=== PATIENT | male | born 1990 | race Caucasian/White ===

== ENCOUNTER 2017-03-11 14:47 | Inpatient (IN) | payer MEDICAID, OTHER ==
[~2017-03-11] VITALS: Ht 175.3 cm; Wt 97.0 kg
[2017-03-11] MEDS ORDERED: SOD CHLORIDE 0.9% 1,000 ML IV STA (15:34)
[2017-03-11] MEDS ORDERED: HYDROmorphONE 1 MG/ML SYG IV STA (15:34)
[2017-03-11] MEDS ORDERED: ONDANSETRON 4 MG INJ IV STA (15:34)
--- NOTE | 2017-03-11 15:57 | RADRPT ---
PROCEDURE: XR Chest. CLINICAL INDICATION: Trauma with pain TECHNIQUE: A single portable view of the chest was obtained. COMPARISON: None FINDINGS: The cardiomediastinal silhouette is within normal limits. The lung volumes are low. The lungs and pl eural spaces are otherwise clear. The soft tissues and osseous structures are unremarkable. IMPRESSION: No acute cardiopulmonary disease. RPTAT: HPNM Physician Michael Date Time Electronically viewed and signed by Mat Melendez Physician on 03/11/2017 15:56 /
[2017-03-11] MEDS ORDERED: DIPHTH/TET/ACEL PERTUSS (ADULT) 0.5 ML VIAL IM* ONE (16:00)
[2017-03-11] MEDS ORDERED: CEFAZOLIN 2 GM/50 ML (PMX) 50 ML IVPB ONE (16:00)
[2017-03-11 16:02] LABS: BASOPHILS % 0.2 % (0.0-2.0); EOSINOPHILS # 0.1 10^3/ul (0.0-0.5); EOSINOPHILS % 0.3 % (0.0-7.0); HEMATOCRIT 43.9 % (42.0-52.0); HEMOGLOBIN 15.1 g/dl (14.0-18.0); LYMPHOCYTES # 1.1 10^3/ul (0.8-2.9); LYMPHOCYTES % 6.5 % (15.0-51.0); MEAN CORPUSCULAR HGB CONC 34.4 g/dl (32.0-37.0); MEAN CORPUSCULAR VOLUME 84.3 fl (82.0-101.0); MEAN PLATELET VOLUME 8.9 fl (7.4-10.4); MONOCYTE # 1.2 10^3/ul (0.3-0.9); MONOCYTES % 6.9 % (0.0-11.0); NEUTROPHIL # 14.5 10^3/ul (1.6-7.5); NEUTROPHILS % 85.4 % (39.0-77.0); PLATELET COUNT 319 10^3/UL (140-415); RED BLOOD COUNT 5.21 10^6/ul (4.70-6.10); RED CELL DISTRIBUTION WIDTH 12.2 % (11.5-14.5)
[2017-03-11 16:18] LABS: PROTIME 13.3 Sec (11.9-14.9)
[2017-03-11 16:20] LABS: ANION GAP 16 (8-16); BLOOD UREA NITROGEN 8 mg/dl (7-20); CALCIUM 9.7 mg/dl (8.4-10.2); CARBON DIOXIDE 26 mmol/L (21-31); CHLORIDE 96 mmol/L (97-110); CREATININE 0.85 mg/dl (0.61-1.24); GLUCOSE 100 mg/dl (70-220); POTASSIUM 3.4 mmol/L (3.5-5.1); SODIUM 135 mmol/L (135-144)
[2017-03-11 16:40] LABS: TROPONIN-I < 0.012 ng/ml (0.00-0.12)
--- NOTE | 2017-03-11 16:41 | RADRPT ---
PROCEDURE: XR Forearm. CLINICAL INDICATION: Fall. TECHNIQUE: Right forearm, AP and lateral views. COMPARISON: None. FINDINGS: The bone mineralization is age appropriate. There is a displaced overriding fracture of the mid right radius. There is soft tissue edema and gas along the right mid forearm. IMPRESSION: Displaced overriding fracture of the mid right radius. RPTAT: AAEE Cezar Gaffney Physician Date Time Electronically viewed and signed by Cezar Gaffney Physician on 03/11/2017 16:40 /
--- NOTE | 2017-03-11 17:04 | RADRPT ---
PROCEDURE: CT cervical spine without contrast CLINICAL INDICATION: Trauma. Neck pain. TECHNIQUE: CT scan of the cervical spine was [facility] No IV contrast was administered. Coronal and sagittal reformatted images were obtained from th e axial source images. Images were reviewed on a high-resolution PACS workstation. One or more the f ollowing does reduction techniques were utilized: Automated exposure control, adjustment of the mA/ or kV according to patient's size, or use of iterative reconstruction technique. Exam CTDI = 22.34 m Gy and the DLP = 620.98 mGy-cm. DICOM images are available. COMPARISON: None available. FINDINGS: There is straightening of the alignment of the cervical spine with loss of the normal cervical lordo sis. Alignment remains intact. No acute fracture or dislocation is seen. The vertebral body heigh ts and disk spaces are preserved. No significant spinal canal or foraminal stenosis is noted. No ma ss, hematoma, or other soft tissue abnormality is seen. IMPRESSION: 1. Straightening of normal cervical lordosis. 2. No acute fracture or traumatic subluxation. RPTAT: UU .Mireya Palomino MD, MD Date Time Electronically viewed and signed by .Mireya Palomino MD, MD on 03/11/2017 17:04 .N/
--- NOTE | 2017-03-11 17:05 | RADRPT ---
PROCEDURE: CT Brain without. CLINICAL INDICATION: Injury, fall, pain. TECHNIQUE: A CT of the brain was performed on multidetector high-resolution CT scanner utilizing a xial sections from the skull base through the vertex without contrast. The scan was reviewed in sof t tissue brain and high frequency resolution bone algorithm windows. Images were reviewed on a high -resolution PACS workstation. One or more the following does reduction techniques were utilized: Aut omated exposure control, adjustment of the mA/ or kV according to patient's size, or use of iterativ e reconstruction technique. The exam CTDI = 39.56 mGy and the DLP = 810.25 mGy-cm. DICOM images are available. COMPARISON: None available. FINDINGS: The ventricles and sulci are age-appropriate. There is no intracranial hemorrhage, mass effect or mi dline shift. No abnormal intra-axial or extra-axial fluid collections are seen. The bowser/white dominick er differentiation is preserved. No acute skull abnormality is noted. The visualized paranasal sinus es demonstrate mild mucus secretion and fluid level in the right maxillary sinus. There is probable mucous retention cyst in the right maxillary sinus. The mastoid air cells are essentially clear. IMPRESSION: 1. No acute intracranial hemorrhage, transcortical infarction or mass effect. RPTAT: HH .Mireya Palomino MD, MD Date Time Electronically viewed and signed by .Mireya Palomino MD, MD on 03/11/2017 17:05 .N/
--- NOTE | 2017-03-11 17:14 | RADRPT ---
PROCEDURE: CT Chest. CLINICAL INDICATION: Trauma with chest pain. TECHNIQUE: CT scan of the chest without contrast was performed on the [facility] volumetric [address] [facility] without contrast. Coronal and sagittal reformatted images were obtained from the axial source images. The CTDI vol is 15.59 mGy and the DLP is 675.94 mGy-cm. One or more of the following dose reduction techniques were used: Automated exposure control. Adjustment of the mA and/or kV according to patient size. Use of iterative reconstruction technique. COMPARISON: None. FINDINGS: The lungs are clear. No focal opacification, effusion, pneumothorax, edema, or nodules are seen. T here is no acute infiltrate.The mediastinum and hilum are unremarkable without evidence for mass or lymphadenopathy. The vascular structures of the mediastinum are unremarkable in course and caliber . The heart size is normal without evidence for pericardial thickening or effusion. The axillary r egions, subpectoral regions, and supraclavicular regions are all unremarkable. Imaging obtained thr ough the upper abdomen reveals no acute abnormality. A minimal compression fracture of the superior endplate of T9 is suggested. No osteolytic or osteoblastic lesion is detected. IMPRESSION: 1. Limited examination secondary to the noncontrast technique in the setting of trauma. 2. Suggestion of a minimal compression fracture of the T9 superior endplate. 3. Otherwise, no other CT evidence for acute traumatic injury in the chest. RPTAT: HPNM Physician Michael Date Time Electronically viewed and signed by Physician Michael on 03/11/2017 17:14 /
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
[2017-03-11] MEDS ORDERED: ONDANSETRON 4 MG INJ IV PRN (17:30)
[2017-03-11] MEDS ORDERED: ACETAMINOPHEN 325 MG TAB PO PRN (17:30)
--- NOTE | 2017-03-11 19:05 | ERD ---
ER Documentation Chief Complaint Chief Complaint BIB SELF, CC: RIGHT FOREARM / WRIST PAIN S/P FALL FROM CHAIR HPI Patient is a 26-year-old male with no medical problems who presents with a fall down the stairs. He said that 1-1/2 hours ago he fell down 4-5 stairs. There is right arm pain with deformity and bleeding. He said that a piece of bone was sticking out of his arm and he pushed it back again. He complains of upper back pain as well. He does not remember if he hit his head or not as he does not remember the actual fall. He has had no treatment as of yet. ROS All systems reviewed and are negative except as per history of present illness. Medications Home Meds No Active Prescriptions or Reported Meds Allergies Allergies: Coded Allergies: No Known Allergy (Unverified , 03/11/17) PMhx/Soc Medical and Surgical Hx: pt denies Medical Hx FmHx Family History: No diabetes Physical Exam Vitals Vital Signs Date Time Temp Pulse Resp B/P Pulse Ox O2 Delivery O2 Flow Rate FiO2 03/11/17 17:12 98.5 91 18 125/81 100 Physical Exam Const: Severe distress secondary to pain Head: Atraumatic Eyes: Normal Conjunctiva ENT: Normal External Ears, Nose and Mouth. Neck: Full range of motion..~ No meningismus. Resp: Clear to auscultation bilaterally Cardio: Regular rate and rhythm, no murmurs Abd: Soft, non tender, non distended. Normal bowel sounds Skin: Laceration to the mid forearm which is not arterial bleeding at this time Back: No midline or flank tenderness Ext: Swelling to the left forearm with laceration of the midforearm Neur: Awake, patient is unable to wiggle his fingers or squeeze on the left hand concerning for potential nerve injury, the patient does have sensation over all 5 fingers however and good capillary refill Result Diagram: 03/11/17 1550 03/11/17 1550 Results 24 hrs Laboratory Tests Test 03/11/17 15:50 White Blood Count 17.010^3/ul Red Blood Count 5.2110^6/ul Hemoglobin 15.1g/dl Hematocrit 43.9% Mean Corpuscular Volume 84.3fl Mean Corpuscular Hemoglobin 29.0pg Mean Corpuscular Hemoglobin Concent 34.4g/dl Red Cell Distribution Width 12.2% Platelet Count 47736^3/UL Mean Platelet Volume 8.9fl Neutrophils % 85.4% Lymphocytes % 6.5% Monocytes % 6.9% Eosinophils % 0.3% Basophils % 0.2% Nucleated Red Blood Cells % 0.0/100WBC Neutrophils # 14.510^3/ul Lymphocytes # 1.110^3/ul Monocytes # 1.210^3/ul Eosinophils # 0.110^3/ul Basophils # 0.010^3/ul Nucleated Red Blood Cells # 0.010^3/ul Prothrombin Time 13.3Sec Prothrombin Time Ratio 1.0 INR International Normalized Ratio 1.00 Activated Partial Thromboplast Time 27.0Sec Sodium Level 135mmol/L Potassium Level 3.4mmol/L Chloride Level 96mmol/L Carbon Dioxide Level 26mmol/L Anion Gap 16 Blood Urea Nitrogen 8mg/dl Creatinine 0.85mg/dl Glucose Level 100mg/dl Calcium Level 9.7mg/dl Troponin I < 0.012ng/ml Current Medications Medications (Trade) Dose Ordered Sig/Shaka Route PRN Reason Start Time Stop Time Status Last Admin Dose Admin Sodium Chloride (NS) 1,000 ml @ 1,000 mls/hr Q1H STAT IV 03/11/17 15:34 03/11/17 16:33 DC Hydromorphone HCl (Dilaudid) 1 mg ONCE STAT IV 03/11/17 15:34 03/11/17 15:37 DC Ondansetron HCl (Zofran Inj) 4 mg ONCE STAT IV 03/11/17 15:34 03/11/17 15:37 DC Diphtheria/ Tetanus/Acell Pertussis 0.5 ml 0.5 ml ONCE ONCE IM* 03/11/17 16:00 03/11/17 16:01 DC Cefazolin Sodium/ Dextrose (Ancef 2 Gm/50 ml (Pmx)) 50 ml @ 100 mls/hr ONCE ONCE IVPB 03/11/17 16:00 03/11/17 16:29 DC Ondansetron HCl (Zofran Inj) 4 mg BRIDGE ORDER PRN IV NAUSEA AND/OR VOMITING 03/11/17 17:30 03/12/17 17:29 Acetaminophen (Tylenol Tab) 650 mg ER BRIDGE PRN PO MILD PAIN/FEVER 03/11/17 17:30 03/12/17 17:29 Procedures/MDM X-ray Forearm 2V Interpreted by me: Bones: Midshaft radius fracture with displacement Joints: No dislocation Foreign body: None Splint Note Type: Volar Location: Left forearm Indication: Open radius fracture Splint Assessment: Neurovascularly intact post splint placement with good fit. CT head, cervical spine, chest, abdomen, and pelvis showed no obvious traumatic injury per radiology other than a compression fracture at T9. Patient is a 26-year-old male presents with an open fracture to the right mid radius. The patient was given Ancef, tetanus, Dilaudid and will be admitted to the care of the panel team. I also spoke with Dr. Jarvis from orthopedic surgery who is willing to consult on this patient and will need to take the patient to the operating room for washout and fixation. He does have sensation in his fingers and it appears to have good vascular flow. There was a T9 compression fracture on CT scan of the chest. Critical Care: Time: 35 minutes excluding all billable procedures. Treatments/Evaluations: Close monitoring and treatment of unstable vital signs, cardiorespiratory, and neurologic status, while maintaining tight balance of fluid, respiratory, and cardiac interventions. Departure Diagnosis: Primary Impression: Fall Encounter type: initial encounter Qualified Code: W19.XXXA - Fall, initial encounter Additional Impressions: Open forearm fracture Encounter type: initial encounter Open fracture type: open type I or II Laterality: right Qualified Code: S52.91XB - Type I or II open fracture of right forearm, initial encounter Compression fracture Condition: Serious SHANE PETERS MD Mar 11, 2017 19:05
--- NOTE | 2017-03-11 19:38 | HP ---
Date/Time of Note Date/Time of Note DATE: 03/11/17 TIME: 19:34 Assessment/Plan VTE Prophylaxis VTE Prophylaxis Intervention: other Assessment/Plan Chief Complaint/Hosp Course 26 yo male wtih open radius fracture Fracture: - Abx - Pain control - management per Dr Jarvis Problems: HPI/ROS Admit Date/Time Admit Date/Time Hx of Present Illness 26 yo male without pmh who presents after fall with open radius fracture Patient suffered mechanical fall down stairs, hit his head. Serial imaging reveals only trauma is to arm No problems with sensation in hand Given abx by ED Dr Jarvis is seeing patient PMH/Family/Social Past Medical History Medical History: no pertinent history Exam/Review of Systems Vital Signs Vitals Vital Signs Date Time Temp Pulse Resp B/P Pulse Ox O2 Delivery O2 Flow Rate FiO2 03/11/17 17:12 98.5 91 18 125/81 100 Exam Exam R forearm in a splint, hand with normal sensation, palpable pulses Constitutional: alert, oriented, well developed Psych: nl mood/affect, no complaints Head: atraumatic, normocephalic Eyes: EOMI, PERRL, nl conjunctiva, nl lids, nl sclera ENMT: nl external ears & nose, nl lips & teeth, nl nasal mucosa & septum Neck: non-tender, supple Respiratory: clear to auscultation, normal air movement Cardiovascular: nl pulses, regular rate and rhythm Gastrointestinal: nl liver, spleen, non-tender, soft Musculoskeletal: nl extremities to inspection Extremities: normal pulses Neurological: DRAFTER MECHANICAL II-XII intact, nl mental status, nl speech, nl strength Skin: nl turgor, No rash or lesions Lymph: nl lymph nodes Labs Result Diagram: 03/11/17 1550 03/11/17 1550 IRA COLBY MD Mar 11, 2017 19:38
[2017-03-11] MEDS ORDERED: NACL 0.9% 3 ML SYG IV SCH (20:00)
[2017-03-11] MEDS: morphine 2 MG INJ IV PRN (21:41)
[2017-03-11 23:00] VITALS: BP 121/68; RESP 20
[2017-03-11 23:13] VITALS: Ht 175.3 cm; Wt 97.0 kg
[2017-03-11] MEDS: DEXTROSE 5%-0.45% NACL 1,000 ML IV SCH (23:45)
[2017-03-12] VITALS (29 sets, daily range): BP systolic 113–166; BP diastolic 63–104; PULSE 54–102; RESP 13–20
[2017-03-12] MEDS: morphine 2 MG INJ IV PRN ×3 (01:04→14:12)
[2017-03-12 07:06] LABS: ALBUMIN 3.2 g/dl (3.3-4.9); ALBUMIN/GLOBULIN RATIO 1.14; CALCIUM 8.5 mg/dl (8.4-10.2); CREATININE 0.81 mg/dl (0.61-1.24); POTASSIUM 3.4 mmol/L (3.5-5.1)
[2017-03-12] MEDS: DEXTROSE 5%-0.45% NACL 1,000 ML IV SCH ×3 (08:58→22:18)
[2017-03-12] MEDS: OXYCODONE/ACETAMINOPHEN (5/325) TAB PO PRN ×2 (10:40→21:29)
--- NOTE | 2017-03-12 15:04 | PN ---
Date/Time of Note Date/Time of Note DATE: 03/12/17 TIME: 15:03 Assessment/Plan VTE Prophylaxis VTE Prophylaxis Intervention: LMWH Lines/Catheters IV Catheter Type (from Nrsg): Peripheral IV Urinary Cath still in place: No Assessment/Plan Chief Complaint/Hosp Course 26 yo male wtih open radius fracture Fracture: - Abx given open wound - Pain control - management per Dr Jarvis, to OR today Problems: Subjective 24 Hr Interval Summary Free Text/Dictation Awaiting surgery per Dr Jarvis Pain controlled Exam/Review of Systems Vital Signs Vitals Vital Signs Date Time Temp Pulse Resp B/P Pulse Ox O2 Delivery O2 Flow Rate FiO2 03/12/17 14:40 97.7 63 18 127/75 99 03/11/17 22:20 Room Air Intake and Output 03/11/17 03/11/17 03/12/17 15:00 23:00 07:00 Intake Total 300 ml Balance 300 ml Exam Constitutional: alert, oriented, well developed Psych: nl mood/affect, no complaints Head: atraumatic, normocephalic Eyes: EOMI, PERRL, nl conjunctiva, nl lids, nl sclera ENMT: nl external ears & nose, nl lips & teeth, nl nasal mucosa & septum Neck: non-tender, supple Respiratory: clear to auscultation, normal air movement Cardiovascular: nl pulses, regular rate and rhythm Gastrointestinal: nl liver, spleen, non-tender, soft Musculoskeletal: nl extremities to inspection, nl gait and stance Extremities: normal pulses Neurological: COMBINE OPERATOR II-XII intact, nl mental status, nl speech, nl strength Skin: nl turgor, No rash or lesions Lymph: nl lymph nodes Results Result Diagram: 03/11/17 1550 03/12/17 0520 Results 24 hrs Laboratory Tests Test 03/11/17 15:50 03/12/17 05:20 White Blood Count 17.0 H Red Blood Count 5.21 Hemoglobin 15.1 Hematocrit 43.9 Mean Corpuscular Volume 84.3 Mean Corpuscular Hemoglobin 29.0 Mean Corpuscular Hemoglobin Concent 34.4 Red Cell Distribution Width 12.2 Platelet Count 319 Mean Platelet Volume 8.9 Neutrophils % 85.4 H Lymphocytes % 6.5 L Monocytes % 6.9 Eosinophils % 0.3 Basophils % 0.2 Nucleated Red Blood Cells % 0.0 Neutrophils # 14.5 H Lymphocytes # 1.1 Monocytes # 1.2 H Eosinophils # 0.1 Basophils # 0.0 Nucleated Red Blood Cells # 0.0 Prothrombin Time 13.3 Prothrombin Time Ratio 1.0 INR International Normalized Ratio 1.00 Activated Partial Thromboplast Time 27.0 Sodium Level 135 139 Potassium Level 3.4 L 3.4 L Chloride Level 96 L 105 Carbon Dioxide Level 26 25 Anion Gap 16 12 Blood Urea Nitrogen 8 4 L Creatinine 0.85 0.81 Glucose Level 100 89 Calcium Level 9.7 8.5 Troponin I < 0.012 Total Bilirubin 1.0 Direct Bilirubin 0.00 Indirect Bilirubin 1.0 Aspartate Amino Transf (AST/SGOT) 31 Alanine Aminotransferase (ALT/SGPT) 38 Alkaline Phosphatase 48 Total Protein 6.0 L Albumin 3.2 L Globulin 2.80 Albumin/Globulin Ratio 1.14 Medications Medications Current Medications Dextrose/Sodium Chloride (D5-1/2ns) 1,000 ml @ 75 mls/hr [id number] IV Last administered on 03/12/17 14:13; Admin Dose 75 MLS/HR; Start 03/11/17 at 19:38 Oxycodone/ Acetaminophen (Percocet (5/ 325)) 2 tab Q6H PRN PO SEVERE PAIN LEVEL 7-10 Last administered on 03/12/17 10:40; Admin Dose 2 TAB; Start 03/11 at 20:00 Morphine Sulfate (morphine) 2 mg Q4H PRN IV SEVERE PAIN LEVEL 7-10 Last administered on 03/12/17 14:12; Admin Dose 2 MG; Start 03/11/17 at 20:00 Influenza Virus Vaccine (Fluzone) 0.5 ml ONCE ONCE IM* ; Start 03/14/17 at 09: 00; Stop 03/14/17 at 09:01 IRA COLBY MD Mar 12, 2017 15:04
[2017-03-12] MEDS ORDERED: CEFAZOLIN 1 GM/50 ML (PMX) 50 ML IVPB SCH ×2 (15:30→16:00)
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
[2017-03-12] MEDS ORDERED: ROPIVACAINE 0.5 % 30 ML VIAL ONE (16:32)
[2017-03-12] MEDS ORDERED: MIDAZOLAM 1 MG/ML 2 ML INJ ONE (16:32)
[2017-03-12] MEDS ORDERED: PROPOFOL 20 ML ONE (17:23)
[2017-03-12] MEDS ORDERED: CEFAZOLIN 1 GM INJ ONE (17:23)
[2017-03-12] MEDS ORDERED: SUGAMMADEX SODIUM 200 MG/2 ML VIAL IV ONE (17:23)
[2017-03-12] MEDS ORDERED: ROCURONIUM 50 MG INJ ONE (17:23)
[2017-03-12] MEDS ORDERED: SUCCINYLCHOLINE CHLORIDE 100 MG/5 ML SYG IV ONE (17:23)
[2017-03-12] MEDS ORDERED: LIDOCAINE 2% (SDV) 5 ML INJ ONE (17:23)
[2017-03-12] MEDS ORDERED: DIPHENHYDRAMINE 50 MG INJ IV PRN (17:30)
[2017-03-12] MEDS ORDERED: HYDROmorphONE (0.2 MG/ML) 10ML SYG IV PRN ×2 (17:30)
[2017-03-12] MEDS ORDERED: MEPERIDINE 25 MG INJ IV PRN (17:30)
[2017-03-12] MEDS ORDERED: METOCLOPRAMIDE 10 MG INJ IV PRN (17:30)
[2017-03-12] MEDS ORDERED: ONDANSETRON 4 MG INJ IV PRN (17:30)
[2017-03-12] MEDS ORDERED: VANCOMYCIN 1 GM INJ ONE (17:56)
[2017-03-12] MEDS ORDERED: POLYMYXIN/BACITRACIN 1L IRRIG ONE (17:56)
[2017-03-12] MEDS ORDERED: BACITRACIN 50000 UNITS INJ ONE (17:57)
[2017-03-12] MEDS ORDERED: NACL 0.9% 3 ML SYG IV SCH (19:30)
[2017-03-12] MEDS ORDERED: FENTAnyl 50 MCG/ML VIAL ONE (19:36)
[2017-03-12] MEDS: FENTAnyl 50 MCG/ML VIAL IV PRN ×5 (19:47→20:47)
--- NOTE | 2017-03-12 19:55 | SIPON ---
Date/Time of Note Date/Time of Note DATE: 03/12/17 TIME: 19:39 Operative Report Preoperative Diagnosis OPEN COMMINUTED FRAVTURE, SHAFT OF eT,RADIUS Postoperative Diagnosis SAME PREOP Operation/Procedure Performed 1) OPEN IRIGATION AND DEBRIDMENT 2)O.R.I.F. of comminuted fracture of shaft of Rt. radius Surgeon see signature line care assistant none Anesthesia: general Estimated blood loss: 10 - 50 ml's Transfusion Required none Specimen none Grafts/Implants none Complications none JUANCARLOS MCARTHUR MD Mar 12, 2017 19:50
[2017-03-12] MEDS ORDERED: morphine 4 MG/ML VIAL IV PRN (20:00)
[2017-03-12] MEDS: HYDROmorphONE (0.2 MG/ML) 10ML SYG IV PRN ×3 (20:07→20:49)
[2017-03-12] MEDS ORDERED: hydrALAzine 20 MG INJ IV ONE (20:30)
[2017-03-12] MEDS ORDERED: hydrALAzine 20 MG INJ ONE (20:31)
--- NOTE | 2017-03-12 20:57 | RADRPT ---
PROCEDURE: XR forearm. CLINICAL INDICATION: Trauma TECHNIQUE: AP and lateral views of the right forearm were performed. COMPARISON: 03/11/2017 FINDINGS: There has been interval internal fixation of the radial diaphyseal fracture with placement of a plat e and screws. IMPRESSION: Interval reduction and internal fixation of the radius fracture. RPTAT: HIKT .Honorio Ferrell MD, MD Date Time Electronically viewed and signed by .Honorio Ferrell MD, MD on 03/12/2017 20:56 .T/
[2017-03-12] MEDS: CEFAZOLIN 1 GM/50 ML (PMX) 50 ML IVPB SCH (21:28)
[2017-03-12] MEDS: SOD CHLORIDE 0.9% 1,000 ML IV SCH (21:29)
[2017-03-13 01:56] VITALS: BP 136/86; RESP 16
--- NOTE | 2017-03-13 02:21 | OPR ---
DATE OF OPERATION: 03/12/2017 PREOPERATIVE DIAGNOSIS: Open comminuted fracture involving the shaft of the right radius. POSTOPERATIVE DIAGNOSIS: Open comminuted fracture involving the shaft of the right radius. OPERATION PERFORMED: 1. Open irrigation and debridement of the open fracture and the wound. 2. Open reduction, with internal fixation of the comminuted fracture of the shaft of the right radius using 6-hole plate. ANESTHESIA: General anesthesia. SURGEON: Philly Jarvis MD. OPERATIVE PROCEDURE: Under anesthesia, the patient was placed in supine position upon the operating table. A tourniquet was placed over the proximal portion of the right arm and was inflated up to 250 mmHg. The usual prep and drape were done exposing the right forearm. First, wound was explored and irrigated aggressively. Before the irrigation, the area was irrigated, and debrided with the hydrogen peroxide, which was followed by rather aggressive irrigation and debridement. Midshaft of the right radius was approached through the anterior longitudinal incision. By blunt and sharp dissection, the fracture was exposed. From the exploration, it was obvious that the bone was protruding through the fascia laceration and causing the open fracture. Again, repeated irrigation was carried out over the area of fracture. It was noted that there were 2 butterfly fragments. Because of this, open reduction was taking rather a while, with some difficulties. However, I was able to reduce it exactly and then internal fixation was carried out using a 6-hole plate. At the end of the procedure, the fracture was stable, in acceptable position. After irrigation and hemostasis, closure of the incision was carried out using 0 Vicryl for muscle and fascia and 2-0 Vicryl for subcutaneous tissues. Final skin closure was carried out with skin froilan. Usual sterile pressure dressings were applied. The open wound was closed with 2-0 nylons. The usual sterile pressure dressings were applied. The patient tolerated the entire procedure very well and was sent to the recovery room in excellent condition. Dictated By: In Senait Jarvis MD /alfonso/sriram /Document#: [id number]
[2017-03-13] MEDS: OXYCODONE/ACETAMINOPHEN (5/325) TAB PO PRN (03:31)
[2017-03-13] MEDS: CEFAZOLIN 1 GM/50 ML (PMX) 50 ML IVPB SCH ×2 (04:01→11:47)
[2017-03-13] MEDS: SOD CHLORIDE 0.9% 1,000 ML IV SCH ×3 (05:30→15:30)
[2017-03-13] MEDS: morphine 2 MG INJ IV PRN ×3 (06:54→17:32)
[2017-03-13 08:25] VITALS: BP 123/73; PULSE 65; RESP 18
[2017-03-13] MEDS: HYDROCODONE/APAP (5/325) TAB PO PRN ×2 (09:21→21:15)
--- NOTE | 2017-03-13 09:35 | RADRPT ---
PROCEDURE: Right radius ORIF surgical procedure CLINICAL INDICATION: Right radius pain. Trauma. TECHNIQUE: Right radius ORIF was performed. 3 intraoperative x-ray images were utilized for local ization during the procedure in progress. COMPARISON: None available Number of images: 3 Fluoroscopy time: 20.1 second FINDINGS: Right radius ORIF was performed. Fixation plate and multiple screws are seen transfixing the mid di aphyseal fracture of the radius in anatomic alignment. IMPRESSION: 1. Fluoroscopic guidance for right radius ORIF procedure. RPTAT: HHO .Wilner De La Torre MD, Date Time Electronically viewed and signed by .Wilner De La Torre MD, on 03/13/2017 09:35 .O/
--- NOTE | 2017-03-13 13:52 | PN ---
Date/Time of Note Date/Time of Note DATE: 03/13/17 TIME: 13:50 Assessment/Plan VTE Prophylaxis VTE Prophylaxis Intervention: heparin Lines/Catheters IV Catheter Type (from Nrsg): Peripheral IV Urinary Cath still in place: No Assessment/Plan Chief Complaint/Hosp Course 26 yo male wtih open radius fracture Open radial fracture s/p ORIF with washout: - Continue cefazolin per Dr MCARTHUR - Pain control PRN - Fracture and surgical management per Dr Mcarthur, needs repeat procedure Discharge plan per Dr Mcarthur Problems: Subjective 24 Hr Interval Summary Free Text/Dictation Underwent washout and ORIF of fracture Today is doing well, pain is controlled Exam/Review of Systems Vital Signs Vitals Vital Signs Date Time Temp Pulse Resp B/P Pulse Ox O2 Delivery O2 Flow Rate FiO2 03/13/17 10:43 Nasal Cannula 2.0 03/13/17 08:25 98.0 65 18 123/73 97 Intake and Output 03/12/17 03/12/17 03/13/17 15:00 23:00 07:00 Intake Total 0 ml 1450 ml 1370 ml Output Total 330 ml 350 ml Balance 0 ml 1120 ml 1020 ml Exam RUE in wrapping, moving fingers, sensation in tact in hand Constitutional: alert, oriented, well developed Psych: nl mood/affect, no complaints Head: atraumatic, normocephalic Eyes: EOMI, PERRL, nl conjunctiva, nl lids, nl sclera ENMT: nl external ears & nose, nl lips & teeth, nl nasal mucosa & septum Neck: non-tender, supple Respiratory: clear to auscultation, normal air movement Cardiovascular: nl pulses, regular rate and rhythm Gastrointestinal: nl liver, spleen, non-tender, soft Musculoskeletal: nl extremities to inspection, nl gait and stance Extremities: normal pulses Neurological: POLITICAL RESEARCHER II-XII intact, nl mental status, nl speech, nl strength Skin: nl turgor, No rash or lesions Lymph: nl lymph nodes Results Result Diagram: 03/11/17 1550 03/12/17 0520 Medications Medications Current Medications Oxycodone/ Acetaminophen (Percocet (5/ 325)) 2 tab Q6H PRN PO SEVERE PAIN LEVEL 7-10 Last administered on 03/13/17t 03:31; Admin Dose 2 TAB; Start 03/11 at 20:00 Morphine Sulfate (morphine) 2 mg Q4H PRN IV SEVERE PAIN LEVEL 7-10 Last administered on 03/13/17 13:37; Admin Dose 2 MG; Start 03/11/17 at 20:00 Influenza Virus Vaccine 0.5 ml 0.5 ml ONCE ONCE IM* ; Start 03/14/17 at 09:00; Stop 03/14/17 at 09:01 Sodium Chloride (NS) 1,000 ml @ 100 mls/hr Q10H IV Last administered on 09:30; Admin Dose 100 MLS/HR; Start 03/12/17 at 19:30 Morphine Sulfate (morphine) 3 mg Q3H PRN IV PAIN Last administered on 00:39; Admin Dose 3 MG; Start 03/12/17 at 20:00 Acetaminophen/ Hydrocodone Bitart ([place] (5/325)) 1 tab Q3H PRN PO PAIN Last administered on 03/13/17 09:21; Admin Dose 1 TAB; Start 03/12/17 at 20:00 IRA COLBY MD Mar 13, 2017 13:52
[2017-03-13 19:19] VITALS: BP 137/89; RESP 16
[2017-03-14 02:00] VITALS: BP 133/83; RESP 16
[2017-03-14] MEDS: HYDROCODONE/APAP (5/325) TAB PO PRN ×4 (03:00→23:19)
[2017-03-14 07:22] VITALS: BP 131/81; RESP 20
[2017-03-14] MEDS ORDERED: INFLUENZA VIRUS VACCINE 0.5 ML (DISPENSING) IM* ONE (09:00)
[2017-03-14] MEDS ORDERED: POTASSIUM CHLORIDE (SR) 20 MEQ TAB PO STA (09:32)
[2017-03-14 14:07] VITALS: BP 130/63; RESP 18
--- NOTE | 2017-03-14 14:53 | PN ---
Date/Time of Note Date/Time of Note DATE: 03/14/17 TIME: 14:52 Assessment/Plan VTE Prophylaxis VTE Prophylaxis Intervention: SCD's Lines/Catheters IV Catheter Type (from Nrsg): Peripheral IV Urinary Cath still in place: No Assessment/Plan Chief Complaint/Hosp Course 1. Open radial fracture s/p ORIF with washout: -Status post cefazolin per Dr MCARTHUR - Pain control PRN - Fracture and surgical management per Dr Mcarthur, needs repeat procedure Discharge plan per Dr Mcarthur Prophylaxis: SCDs Problems: Subjective 24 Hr Interval Summary Constitutional: no complaints Exam/Review of Systems Vital Signs Vitals Vital Signs Date Time Temp Pulse Resp B/P Pulse Ox O2 Delivery O2 Flow Rate FiO2 03/14/17 14:07 98.2 68 18 130/63 99 03/13/17 10:43 Nasal Cannula 2.0 Intake and Output 03/13/17 03/13/17 03/14/17 15:00 23:00 07:00 Intake Total 250 ml 1710 ml 1400 ml Output Total 3000 ml Balance 250 ml -1290 ml 1400 ml Exam Constitutional: alert Respiratory: clear to auscultation Cardiovascular: regular rate and rhythm Gastrointestinal: soft, No distended Musculoskeletal: No nl extremities to inspection Results Result Diagram: 03/11/17 1550 03/12/17 0520 Medications Medications Current Medications Oxycodone/ Acetaminophen (Percocet (5/ 325)) 2 tab Q6H PRN PO SEVERE PAIN LEVEL 7-10 Last administered on 03/13/17 03:31; Admin Dose 2 TAB; Start 03/11 at 20:00 Morphine Sulfate (morphine) 2 mg Q4H PRN IV SEVERE PAIN LEVEL 7-10 Last administered on 03/13/17 17:32; Admin Dose 2 MG; Start 03/11/17 at 20:00 Morphine Sulfate (morphine) 3 mg Q3H PRN IV PAIN Last administered on 00:39; Admin Dose 3 MG; Start 03/12/17 at 20:00 Acetaminophen/ Hydrocodone Bitart ([place] (5/325)) 1 tab Q3H PRN PO PAIN Last administered on 03/14/17 10:55; Admin Dose 1 TAB; Start 03/12/17 at 20:00 CALVIN DESHPANDE Mar 14, 2017 14:53
[2017-03-14] MEDS ORDERED: VANCOMYCIN IV PER PHARMACY XX SCH (17:30)
[2017-03-14 19:36] VITALS: BP 138/73; RESP 18
[2017-03-14] MEDS: VANCOMYCIN 2 GM in SOD CHLORIDE 0.9% 500 ML IVPB SCH (20:51)
[2017-03-15 02:25] VITALS: BP 122/75; RESP 18
--- NOTE | 2017-03-15 05:21 | PN ---
DATE: 03/14/2017 Second postop day. Afebrile. Seems to have a slight weakness in the wrist extensor; however, there are no sensory changes. Postop x-ray shows acceptable alignment. Can be discharged after Infectious Disease consultation and arrangement for further antibiotic care and if his pain can be controlled with oral analgesics. Dictated By: In Senait Jarvis MD /alfonso/mary /Document#: [id number]
--- NOTE | 2017-03-15 05:49 | CONS ---
DATE OF ADMISSION: 03/11/2017 DATE OF CONSULTATION: 03/14/2017 TYPE OF CONSULTATION: Infectious Disease. REASON FOR CONSULTATION: Antibiotic management. HISTORY OF PRESENT ILLNESS: The patient is a 26-year-old male with no significant past medical hist ory who presented after falling with open radius fracture. He suffered a mechanical fall when he fe ll down the stairs and hit his head. The patient on admission had a white count of 17,000, H and H of 15.1 and 43.9 and platelet count 319,000. BUN and creatinine 8/0.85. HOSPITAL COURSE: The patient was seen by Dr. Yesika Jarvis and Dr. Jarvis noted that he is a 26-year-old m leslie with right forearm in a splint. Examination has revealed 2 cm long open wound, whether there is direct communication to the fracture site or not was not clear initially even after probing; Dr. Simona raines took the patient to Surgery and at Surgery he noted open comminuted fracture involving th e shaft of the right radius. He did open irrigation and debridement of the open fracture and open r eduction with internal fixation of the comminuted fracture of the shaft of the right radius seizing 6-hole plate, so plate was placed. The patient was placed on Ancef perioperatively. Forearm x-ray on the 03/12/2017 was for open reduction and internal fixation. PAST MEDICAL HISTORY: Operations as outlined. FAMILY HISTORY: Noncontributory. SOCIAL HISTORY: Does not smoke, drink or abuse drugs. ALLERGIES: NONE TO PENICILLIN, SULFA OR FOODS. MEDICATIONS: Per chart. REVIEW OF SYSTEMS: As per HPI. PHYSICAL EXAMINATION: GENERAL: The patient is a well-developed, well-nourished male who is alert, responsive, in no acute distress. VITAL SIGNS: Stable. He is afebrile. SKIN: Without generalized rash. HEENT: Within normal limits. NECK: Supple. LYMPH NODES: None palpable. CHEST: Decreased breath sounds at the bases. HEART: Without murmur or gallop. ABDOMEN: Soft and nontender without organosplenomegaly or masses. EXTREMITIES: Without cyanosis, clubbing or edema. RECTAL AND GENITAL: Deferred. NEUROLOGIC: No focal neurological abnormality. IMPRESSION AND PLAN: Since this patient had an open wound, we are going to treat him with IV antibi otics for 3 days with vancomycin. His surgery was on the . He had cefazolin, so we will treat him for another 2 days with IV vancomycin. I will dictate my findings to the hospitalist and to Dr. Jarvis. Dictated By: VARSHA PHELPS MD, JD/AILEEN Conf#: [id number] DID#: [id number] CC: IRA COLBY MD;*EndCC*
[2017-03-15] MEDS: HYDROCODONE/APAP (5/325) TAB PO PRN ×4 (06:06→21:56)
[2017-03-15 07:50] VITALS: BP 120/66; RESP 14
[2017-03-15] MEDS: VANCOMYCIN 2 GM in SOD CHLORIDE 0.9% 500 ML IVPB SCH ×2 (08:51→20:04)
[2017-03-15 11:17] LABS: BASOPHILS % 0.2 % (0.0-2.0); EOSINOPHILS # 0.2 10^3/ul (0.0-0.5); EOSINOPHILS % 1.9 % (0.0-7.0); HEMATOCRIT 44.2 % (42.0-52.0); LYMPHOCYTES # 1.2 10^3/ul (0.8-2.9); LYMPHOCYTES % 12.8 % (15.0-51.0); MEAN CORPUSCULAR HEMOGLOBIN 29.2 pg (29.0-33.0); MEAN CORPUSCULAR HGB CONC 33.9 g/dl (32.0-37.0); MEAN PLATELET VOLUME 9.1 fl (7.4-10.4); MONOCYTES % 10.4 % (0.0-11.0); NEUTROPHIL # 7.2 10^3/ul (1.6-7.5); NEUTROPHILS % 74.1 % (39.0-77.0); PLATELET COUNT 321 10^3/UL (140-415); RED BLOOD COUNT 5.14 10^6/ul (4.70-6.10); RED CELL DISTRIBUTION WIDTH 12.3 % (11.5-14.5); WHITE BLOOD COUNT 9.7 10^3/ul (4.8-10.8)
[2017-03-15 11:18] LABS: CALCIUM 9.2 mg/dl (8.4-10.2); CREATININE 0.74 mg/dl (0.61-1.24); MAGNESIUM 2.1 mg/dl (1.7-2.5); PHOSPHORUS 3.8 mg/dl (2.5-4.9); POTASSIUM 3.8 mmol/L (3.5-5.1)
--- NOTE | 2017-03-15 15:26 | PN ---
Date/Time of Note Date/Time of Note DATE: 03/15/17 TIME: 15:24 Assessment/Plan VTE Prophylaxis VTE Prophylaxis Intervention: SCD's Lines/Catheters IV Catheter Type (from Nrsg): Saline Lock Urinary Cath still in place: No Assessment/Plan Chief Complaint/Hosp Course 1. Open radial fracture s/p ORIF with washout: -ID consultation appreciated, plan is for another day of vancomycin IV - Pain control PRN - Fracture and surgical management per Dr Jarvis Prophylaxis: SCDs Problems: Subjective 24 Hr Interval Summary Constitutional: no complaints Exam/Review of Systems Vital Signs Vitals Vital Signs Date Time Temp Pulse Resp B/P Pulse Ox O2 Delivery O2 Flow Rate FiO2 03/15/17 07:50 98.4 60 14 120/66 98 03/13/17 10:43 Nasal Cannula 2.0 Intake and Output 03/14/17 03/14/17 03/15/17 15:00 23:00 07:00 Intake Total 2400 ml 1400 ml Balance 2400 ml 1400 ml Exam Constitutional: alert, oriented Respiratory: clear to auscultation Cardiovascular: regular rate and rhythm Gastrointestinal: soft, No distended Musculoskeletal: No nl extremities to inspection Results Result Diagram: 03/15/17 1042 03/15/17 1042 Results 24 hrs Laboratory Tests Test 03/15/17 10:42 White Blood Count 9.7 # Red Blood Count 5.14 Hemoglobin 15.0 Hematocrit 44.2 Mean Corpuscular Volume 86.0 Mean Corpuscular Hemoglobin 29.2 Mean Corpuscular Hemoglobin Concent 33.9 Red Cell Distribution Width 12.3 Platelet Count 321 Mean Platelet Volume 9.1 Neutrophils % 74.1 Lymphocytes % 12.8 L Monocytes % 10.4 Eosinophils % 1.9 Basophils % 0.2 Nucleated Red Blood Cells % 0.0 Neutrophils # 7.2 Lymphocytes # 1.2 Monocytes # 1.0 H Eosinophils # 0.2 Basophils # 0.0 Nucleated Red Blood Cells # 0.0 Sodium Level 139 Potassium Level 3.8 Chloride Level 101 Carbon Dioxide Level 28 Anion Gap 14 Blood Urea Nitrogen 7 Creatinine 0.74 Glucose Level 95 Calcium Level 9.2 Phosphorus Level 3.8 Magnesium Level 2.1 Medications Medications Current Medications Oxycodone/ Acetaminophen (Percocet (5/ 325)) 2 tab Q6H PRN PO SEVERE PAIN LEVEL 7-10 Last administered on 03/13/17t 03:31; Admin Dose 2 TAB; Start 03/11 at 20:00 Morphine Sulfate (morphine) 2 mg Q4H PRN IV SEVERE PAIN LEVEL 7-10 Last administered on 03/13/17 17:32; Admin Dose 2 MG; Start 03/11/17 at 20:00 Morphine Sulfate (morphine) 3 mg Q3H PRN IV PAIN Last administered on 00:39; Admin Dose 3 MG; Start 03/12/17 at 20:00 Acetaminophen/ Hydrocodone Bitart 1 tab 1 tab Q3H PRN PO PAIN Last administered on 03/15/17 09:01; Admin Dose 1 TAB; Start 03/12/17 at 20:00 Vancomycin HCl/ Sodium Chloride (Vancocin/NS) 500 ml @ 125 mls/hr Q12H IVPB Last administered on 03/15/17 08:51; Admin Dose 125 MLS/HR; Start 03/14/17 at 20:00 Miscellaneous Information (*Rx Drug Level Order Reminder*) 1 ONCE ONCE XX ; Start 03/16/17 at 07:00; Stop 03/16/17 at 07:01 CALVIN DESHPANDE Mar 15, 2017 15:26
[2017-03-15 19:25] VITALS: BP 129/66; RESP 20
[2017-03-16 02:06] VITALS: BP 125/56; RESP 18
[2017-03-16] MEDS: HYDROCODONE/APAP (5/325) TAB PO PRN ×2 (05:08→09:11)
--- NOTE | 2017-03-16 06:36 | PN ---
DATE: 03/15/2017 SUBJECTIVE: No acute changes. Patient is alert, looks comfortable, no fevers. WBC 9.7, no shift, no bands. BUN 7, creatinine 0.74. ANTIMICROBIALS: He is on vancomycin. PHYSICAL EXAMINATION: GENERAL: Well-developed, young man in no distress. HEENT: Head atraumatic, normocephalic. Sclerae anicteric. Buccal mucosa pink. NECK: Supple. CHEST: Rise symmetrical. Breath sounds clear. HEART: S1, S2. ABDOMEN: Soft, bowel tones present. EXTREMITIES: With right upper extremity dressing intact. ASSESSMENT: 1. Right arm fracture, status post open reduction and internal fixation. 2. Systemic inflammatory response syndrome. PLAN: Remains stable. Completing IV antibiotics for a total of 3 days post surgery. Continue pain management and supportive care. Dictated By: RORO PILLAI DIRECTOR OF CORPORATE REAL ESTATE for VARSHA PHELPS MD NI/NTS Conf#: [id number] DID#: [id number]
[2017-03-16 07:37] VITALS: BP 120/66; RESP 18
[2017-03-16 07:45] VITALS: BP 133/90; RESP 30
[2017-03-16 07:49] LABS: BASOPHILS % 0.3 % (0.0-2.0); EOSINOPHILS # 0.2 10^3/ul (0.0-0.5); EOSINOPHILS % 1.5 % (0.0-7.0); HEMATOCRIT 44.3 % (42.0-52.0); HEMOGLOBIN 14.9 g/dl (14.0-18.0); LYMPHOCYTES % 9.1 % (15.0-51.0); MEAN CORPUSCULAR HEMOGLOBIN 28.7 pg (29.0-33.0); MEAN CORPUSCULAR HGB CONC 33.6 g/dl (32.0-37.0); MEAN CORPUSCULAR VOLUME 85.4 fl (82.0-101.0); MEAN PLATELET VOLUME 8.8 fl (7.4-10.4); MONOCYTES % 9.2 % (0.0-11.0); NEUTROPHIL # 8.6 10^3/ul (1.6-7.5); NEUTROPHILS % 79.3 % (39.0-77.0); PLATELET COUNT 355 10^3/UL (140-415); RED BLOOD COUNT 5.19 10^6/ul (4.70-6.10); WHITE BLOOD COUNT 10.8 10^3/ul (4.8-10.8)
[2017-03-16 08:13] LABS: CREATININE 0.76 mg/dl (0.61-1.24); POTASSIUM 3.8 mmol/L (3.5-5.1)
[2017-03-16] MEDS: VANCOMYCIN 2 GM in SOD CHLORIDE 0.9% 500 ML IVPB SCH (08:59)
[2017-03-16] MEDS ORDERED: HYDR-906 PO (10:12)
--- NOTE | 2017-03-16 10:13 | PDOCDIS ---
Discharge Instructions CONDITION Patient Condition: Good HOME CARE INSTRUCTIONS: Diet Instructions: Regular ACTIVITY: Activity Restrictions: No Restrictions FOLLOW UP/APPOINTMENTS Follow-up Plan F/U WITH DR MCARTHUR INSTRUCTED CALVIN DESHPANDE Mar 16, 2017 10:13
[2017-03-16 13:45] VITALS: BP 128/74; RESP 18
--- NOTE | 2017-03-16 15:11 | DS ---
Date/Time of Note Date/Time of Note DATE: 03/16/17 TIME: 14:54 Discharge Summary Admission/Discharge Info Admit Date/Time Mar 11, 2017 at 17:09 Discharge Date/Time Mar 16, 2017 at 13:50 Discharge Diagnosis 1. Open radial fracture s/p ORIF with washout: -ID consultation appreciated, patient is status post 3 days of IV antibiotics postsurgery -DC with [facility] -Follow-up with Dr Mcarthur Patient Condition: Good Hospital Course She is a 26 yo male without pmh who presents after fall with open radius fracture. Imaging showed displaced overriding fracture of the mid right radius. Patient was taken to the OR with Dr Mcarthur for repair as well as irrigation and debridement of wound. Patient was seen by ID recommendation was for 3 days of IV antibiotics post surgery which he received. On the day of discharge patient was stable for discharge, vitals, labs and physical exam are stable, patient had no acute complaints and questions answered. Home Meds Active Scripts Hydrocodone/Acetaminophen ([place] 5-325 Tablet) 1 Each Tablet, 1 EACH PO Q4 for PAIN, #40 TAB Prov:CALVIN DESHPANDE 03/16/17 Follow-up Plan F/U WITH DR MCARTHUR INSTRUCTED Primary Care Provider Care Physician No Primary Time spent on discharge: > 30 minutes CALVIN DESHPANDE Mar 16, 2017 15:07
== END 2017-03-16 13:50 | disposition home or self-care (01) | DRG 511 ==
LOC: E/R 14:47 → MS2 17:09
PROVIDERS: ADMIT Internal Medicine; ATTEND Internal Medicine
PROC: 0PSH04Z Reposition Right Radius with Internal Fixation Device, Open Approach (ICD-10-PCS; principal; 2017-03-12 16:30)
DX: S52.351B Displaced comminuted fracture of shaft of radius, right arm, initial encounter for open fracture type I or II (principal); R65.10 Systemic inflammatory response syndrome (SIRS) of non-infectious origin without acute organ dysfunction; W10.9XXA Fall (on) (from) unspecified stairs and steps, initial encounter; E66.9 Obesity, unspecified; Z68.31 Body mass index [BMI] 31.0-31.9, adult; Y92.008 Other place in unspecified non-institutional (private) residence as the place of occurrence of the external cause
CPT/HCPCS: 70450; 71010; 71250; 72125; 74176; 80048; 80053; 80202; 83735; 84100; 84484; 85025; 85610; 85730; 87081; 90686; 90715; 93005; 96374; C1713; J0360; J0690; J1170; J2250; J2270; J2405; J2795; J3010; J3370; J7030; J7040; J7042